=== PATIENT | female | born 1945 | race Caucasian/White ===

== ENCOUNTER 2017-11-01 05:23 | Observation (INO) | payer OTHER ==
[~2017-11-01] VITALS: Ht 160 cm; Wt 68.4 kg
[~2017-11-01 05:23] MED LIST: ATEN25TA PO; ATOR80TA45 PO; XARE20TA PO
[2017-11-01] MEDS ORDERED: SODIUM CHLORIDE 0.9% INJ 100 ML ONE (05:44)
[2017-11-01] MEDS ORDERED: ceFAZolin INJ 1,000 MG VIAL ONE (05:44)
[2017-11-01] MEDS ORDERED: LACTATED RINGER'S 1000 ML IV PRN (06:00)
[2017-11-01] MEDS ORDERED: METOPROLOL TARTRATE 25 MG TAB PO PRN (06:00)
[2017-11-01] MEDS ORDERED: POVIDONE IODINE 5% (ANTISEPSIS KIT) 4 APPLICATIONS EACH NARE PRN (06:00)
[2017-11-01] MEDS ORDERED: CHLORHEXIDINE GLUCONATE 2 % 1 PACK (2 CLOTHS) TOPICAL PRN (06:00)
[2017-11-01] MEDS ORDERED: ceFAZolin 1,000 MG/NS 100 ML IV SCH ×2 (06:00)
[2017-11-01] MEDS ORDERED: SODIUM CHLORIDE FLUSH PRN IV FLUSH (06:00)
[2017-11-01] MEDS ORDERED: SODIUM CHLORID 0.9% 500 ML IV PRN (06:00)
[2017-11-01 06:40] LABS: AUTOMATED NEUTROPHIL # 2.4 TH/MM3 (1.8-7.7); BASOPHIL % 1.2 % (0.0-2.0); EOSINOPHIL # 0.2 TH/MM3 (0-0.4); HEMATOCRIT 38.7 % (35.0-46.0); LYMPH % 19.9 % (9.0-44.0); LYMPHOCYTE # 0.8 TH/MM3 (1.0-4.8); MEAN CELL VOLUME 82.2 FL (80.0-100.0); MEAN CORPUSCULAR HEMOGLOBIN 27.6 PG (27.0-34.0); MEAN CORPUSCULAR HGB CONC 33.6 % (32.0-36.0); MEAN PLATELET VOLUME 9.6 FL (7.0-11.0); MONO % 9.2 % (0.0-8.0); MONOCYTE # 0.4 TH/MM3 (0-0.9); NEUT % 63.7 % (16.0-70.0); PLATELET COUNT 182 TH/MM3 (150-450); RED BLOOD COUNT 4.71 MIL/MM3 (4.00-5.30); RED CELL DISTRIBUTION WIDTH 15.1 % (11.6-17.2); WHITE BLOOD COUNT 3.8 TH/MM3 (4.0-11.0)
[2017-11-01] MEDS ORDERED: ACETAMINOPHEN 1000 MG/100 ML 100 ML IV ONE (07:07)
[2017-11-01] MEDS ORDERED: SODIUM CHLORIDE FLUSH BID IV FLUSH SCH (09:00)
[2017-11-01] MEDS ORDERED: LIDOCAINE 1%/EPINEPHrine 1:100,000 SOLN 20 ML VIAL INFIL ONE (09:56)
[2017-11-01] MEDS ORDERED: ONDANSETRON HCL 4 MG/2 ML VIAL IVP PRN (11:45)
[2017-11-01] MEDS ORDERED: oxyCODONE/ACETAMINOPHEN 5 MG/325 MG TAB PO PRN ×2 (11:45)
[2017-11-01] MEDS ORDERED: SODIUM CHLORIDE 0.9% FLUSH 10 ML FLUSH IV FLUSH PRN (11:45)
[2017-11-01] MEDS ORDERED: LORazepam 0.5 MG TAB PO PRN (11:45)
[2017-11-01] MEDS ORDERED: diphenhydrAMINE HCL 25 MG CAP PO PRN (11:45)
[2017-11-01] MEDS ORDERED: MORPHINE SULFATE 4 MG/ML INJ ONE (11:52)
[2017-11-01] MEDS ORDERED: MIDAZOLAM HCL 2 MG/2 ML VIAL ONE (11:52)
[2017-11-01] MEDS ORDERED: ONDANSETRON HCL 4 MG/2 ML VIAL IV ONE (12:00)
[2017-11-01] MEDS ORDERED: DO NOT ADM ANY ANTICOAGULANT DRUGS PRN (12:00)
[2017-11-01] MEDS: D5-1/2 NS + KCL 20 MEQ INJ 1,000 ML IV SCH ×2 (12:00→21:41)
[2017-11-01] MEDS ORDERED: DEXAMETHASONE SOD PHOS 4 MG/ML VIAL IV ONE (12:00)
[2017-11-01] MEDS ORDERED: ROCURONIUM INJ 50 MG/5 ML SYRINGE IV PUSH ONE (12:00)
[2017-11-01] MEDS ORDERED: PILL SPLITTER OTHER PRN (12:00)
[2017-11-01] MEDS ORDERED: LIDOCAINE HCL 1% PF 5 ML SYRINGE OTHER ONE (12:00)
[2017-11-01] MEDS: KETOROLAC TROMETHAMINE 30 MG/ML (IVP) VIAL IVP SCH ×2 (12:00→18:31)
[2017-11-01] MEDS ORDERED: ePHEDrine/NS 25 MG/5 ML SYRINGE IV ONE (12:00)
[2017-11-01] MEDS ORDERED: PROPOFOL 200 MG/20 ML AMP IV ONE (12:00)
[2017-11-01] MEDS ORDERED: GLYCOPYRROLATE 1 MG/5 ML SYRINGE IV PUSH ONE (12:00)
[2017-11-01] MEDS ORDERED: NEOSTIGMINE 5 MG/5 ML SYRINGE IV PUSH ONE (12:00)
[2017-11-01 15:55] VITALS: BP 137/69; PULSE 48; RESP 16; TEMP 96.8; O2SAT 100
--- NOTE | 2017-11-01 18:24 | MP ---
cc: Abiola Mckeon MD, Dragi Schneider, Julie MD DATE OF OPERATION: 11/01/2017 DATE OF PROCEDURE: 11/01/2017 PREOPERATIVE DIAGNOSIS: Grade 1 endometrial adenocarcinoma. POSTOPERATIVE DIAGNOSES: 1. Grade 1 endometrial adenocarcinoma. 2. Suspicious lesion at the vaginal apex adjacent to the cervix. PROCEDURE PERFORMED: Examination under anesthesia with biopsy of upper vaginal lesion at the 3 o'clock position. Laparoscopic hysterectomy, bilateral salpingo-oophorectomy, partial upper vaginectomy. SURGEON: Abiola Mckeon MD [employer] MACHINE OPERATOR: Candelaria rn first assistant. ANESTHESIA: General endotracheal anesthesia. ESTIMATED BLOOD LOSS: 100 mL. IV FLUIDS: 1800 mL. URINE OUTPUT: 200 mL. PATIENT HISTORY: This is a 72-year-old female who had postmenopausal bleeding that led to evaluation. Evaluation included sampling of the endometrium that showed a grade 1 endometrial adenocarcinoma. She had a prominent endometrial stripe. She was counseled regarding these findings, was in favor of surgery via minimally invasive techniques if possible. She was seen in preop holding area with her . Findings and plan of care discussed. Questions were answered. She expressed good understanding and agreed to move forward. FINDINGS: On exam under anesthesia, the cervix itself appears normal. Uterus is small, sounds to only approximately 6 cm. In the upper vagina, just lateral and adjacent to the cervix on the left upper vagina at 3 o'clock position, was approximately a 7-8 mm pigmented lesion that appeared to be just below the vaginal mucosa, had the gross appearance suggestive of a small area of endometriosis. However, given her history of endometrial cancer, this was biopsied out of concern of drop down metastasis in the vagina. Frozen section of this did not show endometrial cancer or endometriosis, but actually showed very atypical-appearing squamous cells that was thought to be at least carcinoma in situ on frozen section, there was no overt invasion but it appeared suspicious. The uterus, once removed, showed a 2 cm endometrial tumor and invaded just under 50% of the myometrial depth. There was no extension into the cervix. In the peritoneal cavity, there was a small cyst on the left ovary. Otherwise, the tubes and ovaries appeared normal and there was no appreciably enlarged, visible or palpable adenopathy in the pelvis or paraaortic region. The peritoneal surfaces were smooth. There were no implants. Liver and diaphragm edges were smooth. Large and small bowel and adjacent mesentery omentum were all normal, without implants. DESCRIPTION OF PROCEDURE: She was taken to the operating room and placed in dorsal lithotomy position, after general endotracheal anesthesia was administered. Timeout was undertaken. She was identified by site recognition and hospital ID brayon and the proposed procedure was reviewed and confirmed. She was carefully positioned in padded Kareem stirrups. Her arms were padded and secured to the side. She was further secured to the operating table with egg crate padding and tape in a crossed over the shoulder fashion. All sites noted to be properly aligned with no malalignment or pressure points. She was prepped and draped in sterile fashion, placed in lithotomy position. Exam under anesthesia was performed with findings as described above. A biopsy was taken from the lesion at the vaginal apex and an interrupted 2-0 Vicryl [id number] suture was used to render it hemostatic. Cervix was grasped on traction. The uterine cavity was sounded. Cervix was dilated and a standard VCare manipulator was inserted in the usual fashion. Cade catheter placed in the bladder. She was returned to low lithotomy position. We completed draping in anticipation of laparoscopy. With manual elevation of the abdominal wall and direct laparoscopic visualization, 5 mm cannula placed in the left upper quadrant into the peritoneal cavity and an atraumatic entry was confirmed. Carbon dioxide gas was insufflated. A 12 mm cannula was placed in the midline above the umbilicus, an 8 mm cannula was placed in the right upper quadrant and left lateral quadrant and the original 5 mm can exchanged for an 8 mm cannula. She was placed in Trendelenburg position. Peritoneal washings were obtained for cytology. loops of small bowel were folded back on the mesenteric root. The anatomy was surveyed with findings as described above. Robotic system was brought into the operative field, attached in the usual fashion. Monopolar scissors, fenestrated bipolar forceps and ProGrasp manipulators were placed in arms number 1, 2 and 3 respectively and I took my place at the surgeon's console. Right round ligament, isolated, cauterized, transected. The anterior and posterior leafs of the broad ligament were opened. The right ureter was identified. The right infundibulopelvic ligament was isolated. The intervening peritoneum was opened. The infundibulopelvic ligament was isolated to the level of the pelvic brim where it was cauterized and transected. Posterior peritoneum opened along the right side of the uterus and cervix and the right vesicouterine dissected off the lower uterine segment and cervix and the right uterine vessels were skeletonized. The right uterine vessels were cauterized and transected as were the cardinal, paracervical and uterosacral ligaments, thereby freeing the attachments along the right side of the uterus and cervix. Attention was directed toward the left side where the left round ligament was isolated, cauterized and transected. The anterior and posterior leafs of the broad ligament were opened. The left ureter was identified. The left infundibulopelvic ligament was isolated. The the intervening peritoneum was opened and the infundibulopelvic ligament was isolated to the level of the pelvic brim where it was cauterized and transected. Posterior peritoneum opened along the left side of uterus and cervix, the left vesicouterine peritoneum dissected off the lower uterine segment and cervix and the left uterine vessels were skeletonized. The left uterine vessels were cauterized and transected as were the cardinal, paracervical and uterosacral ligaments. As a frozen section came back suspicious for markedly atypical cells, even possible malignancy and due to the very close location of this abnormal lesion to the cervix, dissection was carried out a bit more distally circumferentially to gain exposure to a narrow rim of upper vagina, perhaps 1 cm of upper vagina, especially in the area of the previous biopsy and a circumferential vaginotomy was performed and included the entire lesion which was marked with a suture and that was visible contained within the specimen and the specimen was delivered transvaginally which included uterus, cervix, tubes and ovaries and a narrow margin of upper vagina. Instruments 1 and 3 were exchanged for needle drivers as a pneumo-occluder balloon was placed in the vagina to maintain pneumoperitoneum. Zero Vicryl suture was introduced. Vaginal cuff was closed starting at the left corner, a full-thickness closure incorporating the uterosacral ligament, posterior peritoneum. The area was tied securely. The suture was held on countertraction as a running continuous full thickness closure was carried across the vagina to the contralateral corner where it was similarly secured and tied and the needle was cut and removed. Inspection of the bladder confirmed the bladder wall to be intact. There was a good margin between the edge of the bladder and the vaginal cuff. Good peristalsis of ureters bilaterally. Small bleeders were rendered hemostatic with bipolar cautery and there was good hemostasis. The pelvis was irrigated. The pathology came back showing a grade 1 tumor 2 cm just under 50% invasion. It was felt that morbidity of lymphadenectomy or additional staging steps may exceed potential benefit given the relatively low risk features, so it was felt that all reasonable surgical objectives had been completed. The robotic instruments were removed. The robotic system was disengaged from the operative field. I reentered the bedside under sterile condition. Each of the 3 Ray-Pily sponges that had been placed in the peritoneal cavity were removed individually. Each were inspected and noted to be removed in their entirety. Visual inspection confirmed there were no remaining foreign objects in the peritoneal cavity, preliminary counts were correct and attention was directed toward closing. The 12 mm fascial defect was closed with 0 Vicryl suture using a fascia closure needle apparatus. They were tied securely which rendered the fascia completely airtight and hemostatic. The remaining cannulas were withdrawn, carbon dioxide gas was removed, 3-0 Vicryl, subcutaneous 3-0 Vicryl subcuticular and Steri-Strips were used to close these incisions. She was returned to dorsal lithotomy position. Pelvic exam confirmed the vaginal cuff was well supported. There were no vaginal lacerations. Sites were hemostatic. There were no remaining foreign objects in the vagina. Final counts were correct. She was returned to dorsal supine position and was pending reversal of anesthesia when I left operating room to precede her to the Postanesthesia Care Unit. MD KEANU Alarcon/JSOE , 05:32 PM , 06:22 PM
[2017-11-01 20:00] VITALS: BP 129/64; PULSE 57; PULSE 59; RESP 20; TEMP 98.2; O2SAT 96
[2017-11-01] MEDS ORDERED: ATORVASTATIN 80 MG TAB PO SCH (21:00)
[2017-11-01] MEDS: SODIUM CHLORIDE 0.9% FLUSH 10 ML FLUSH IV FLUSH SCH (21:40)
[2017-11-02] VITALS: BP 99/54; PULSE 55; PULSE 57; RESP 20; TEMP 97.5; O2SAT 97
[2017-11-02 04:00] VITALS: BP 114/66; PULSE 47; PULSE 53; RESP 18; TEMP 97.5; O2SAT 99
[2017-11-02] MEDS: KETOROLAC TROMETHAMINE 30 MG/ML (IVP) VIAL IVP SCH ×2 (04:48)
[2017-11-02 05:34] LABS: AUTOMATED NEUTROPHIL # 7.6 TH/MM3 (1.8-7.7); HEMATOCRIT 33.3 % (35.0-46.0); HEMOGLOBIN 11.2 GM/DL (11.6-15.3); LYMPH % 4.7 % (9.0-44.0); LYMPHOCYTE # 0.4 TH/MM3 (1.0-4.8); MEAN CELL VOLUME 81.6 FL (80.0-100.0); MEAN CORPUSCULAR HEMOGLOBIN 27.6 PG (27.0-34.0); MEAN CORPUSCULAR HGB CONC 33.8 % (32.0-36.0); MEAN PLATELET VOLUME 9.9 FL (7.0-11.0); MONO % 4.7 % (0.0-8.0); MONOCYTE # 0.4 TH/MM3 (0-0.9); NEUT % 90.6 % (16.0-70.0); PLATELET COUNT 154 TH/MM3 (150-450); RED BLOOD COUNT 4.08 MIL/MM3 (4.00-5.30); RED CELL DISTRIBUTION WIDTH 14.9 % (11.6-17.2); WHITE BLOOD COUNT 8.4 TH/MM3 (4.0-11.0)
[2017-11-02 05:47] LABS: BICARBONATE 25.6 MEQ/L (21.0-32.0); CALCIUM 8.2 MG/DL (8.5-10.1); CREATININE 0.7 MG/DL (0.50-1.00)
[2017-11-02] MEDS ORDERED: OXYC1TAB63 PO (07:35)
[2017-11-02] MEDS: D5-1/2 NS + KCL 20 MEQ INJ 1,000 ML IV SCH (07:37)
[2017-11-02 08:00] VITALS: PULSE 55
--- NOTE | 2017-11-02 08:00 | MD ---
cc: Abiola Mckeon MD,Salina Oh MD, DO DATE OF DISCHARGE: 11/02/2017 PROCEDURE PERFORMED: 11/01/2017, robotic-assisted laparoscopic hysterectomy, bilateral salpingo-oophorectomy, partial upper vaginectomy. DIAGNOSIS: Endometrial cancer and an upper vaginal lesion. HOSPITAL COURSE: She did well in the early postop period, hemodynamically stable, tolerating oral intake. Cade catheter removed, pending voiding. Ins and outs 2100 over 850+. Labs this morning show an H and H of 11.2 and 33.3. BUN and creatinine 90.70. PHYSICAL EXAM: VITAL SIGNS: Afebrile, pulse on beta blockers 48-55, respirations 16-20, blood pressure 99 to 134/54 to 66, O2 saturations greater than equal to 97%. GENERAL: Alert and oriented x 3. LUNGS: Clear. CARDIOVASCULAR: Regular rate and rhythm. ABDOMEN: Soft. Incisions clean and dry. GYNECOLOGIC: No bleeding. EXTREMITIES: Nontender. ASSESSMENT: Postoperative day #1, doing well in the early postop period. Findings at the time of surgery, and preliminary pathology discussed. Activities and restrictions again reviewed. Questions were asked and answered. She expressed a good understanding and agrees. PLAN: Therefore, anticipate discharge to home. She is to resume prior medication. It is probably reasonable to restart her Xarelto either this evening or tomorrow evening. She can resume her other medications today. She was given a prescription for Percocet. She is to call our office to ensure she has a followup visit in 2 weeks or to contact us sooner, should she have any questions or problems. Abiola Mckeon MD KLM/DL , 07:39 AM , 07:58 AM
[2017-11-02 08:30] VITALS: BP 133/74; PULSE 66; RESP 16; TEMP 98.5; O2SAT 100
[2017-11-02] MEDS: SODIUM CHLORIDE 0.9% FLUSH 10 ML FLUSH IV FLUSH SCH (09:00)
[2017-11-02] MEDS: ATENOLOL 25 MG TAB PO SCH ×2 (09:12→09:13)
[2017-11-02 11:07] VITALS: BP 113/69; PULSE 47; RESP 16; TEMP 98.7; O2SAT 95
[2017-11-02] MEDS ORDERED: KETOROLAC TROMETHAMINE 30 MG/ML (IVP) VIAL IV PUSH ONE (12:00)
[2017-11-02 13:11] VITALS: PULSE 58
[2017-11-02] MEDS ORDERED: WALKER WHEELS/F1 MIS (13:12)
== END 2017-11-02 16:17 | disposition home or self-care (01) ==
LOC: HSDC 05:23 → HSDI 11:40 → HCIN 15:10
PROVIDERS: ADMIT Obstetrics & Gynecology Gynecologic Oncology; ATTEND Obstetrics & Gynecology Gynecologic Oncology
DX: C54.1 Malignant neoplasm of endometrium (principal); N83.202 Unspecified ovarian cyst, left side; N89.3 Dysplasia of vagina, unspecified; I48.91 Unspecified atrial fibrillation
CPT/HCPCS: 00840; 57106; 58570; 80048; 85025; 86850; 86900; 86901; 88112; 88305; 88307; 88309; 88331; 94150; 96374; 96376; G0378; J0131; J0690; J1100; J1885; J2250; J2270; J2405; J2710; J3010; J3480; J7120